=== PATIENT | female | born 1935 | race Caucasian/White ===

== ENCOUNTER 2024-05-29 18:13 | Emergency (ER) | payer MEDICARE, BC | END 2024-05-29 20:49 | disposition home or self-care (01) | LOC: JP.ED 18:13 | DX: S06.0X0A Concussion without loss of consciousness, initial encounter (principal); Z79.890 Hormone replacement therapy; Z79.899 Other long term (current) drug therapy; W19.XXXA Unspecified fall, initial encounter | CPT/HCPCS: 70450; 72125; 76377; 99283 ==